=== PATIENT | female | born 1945 | race Caucasian/White ===

== ENCOUNTER 2023-07-14 01:40 | Outpatient (CLI) | payer MEDICARE ==
[2023-07-14] VITALS (21 sets, daily range): BP systolic 105–141; BP diastolic 52–89; PULSE 71–114
== END 2023-07-14 23:59 | disposition home or self-care (01) ==
LOC: CARD DIAG 01:40
PROVIDERS: ATTEND Internal Medicine Interventional Cardiology
DX: R55 Syncope and collapse (principal)
CPT/HCPCS: 93660